=== PATIENT | male | born 1940 | race Caucasian/White ===

== ENCOUNTER 2017-08-06 15:15 | Inpatient (IN) | payer OTHER ==
[~2017-08-06] VITALS: Ht 177.8 cm; Wt 66.8 kg
[~2017-08-06 15:15] MED LIST: ASPIRIN EC81 M1 PO; BUFFERIN LOW DO81 MG PO; CALCIUM + D3 E1 EACH PO; CALCIUM + D3 PO; CALCIUM 600 +1 EA12 PO; CO Q-10100 MG PO; COQ-10100 MG PO; COQ10 PO; COUMADIN 5 MG TA5 MG PO; DITROPAN XL5 M1 PO; DOCUSATE SODIU100 MG PO; FISH OIL 1,0001 EACH PO; FISH OIL CONC1000 MG PO; FLOMAX(MONOGRA0.4 MG PO; FLOMAX0.4 M1 PO; LEVOTHYROXIN0.075 MG PO; LEVOTHYROXINE75 MCG PO; LOPRESSOR 25MG25 MG PO; METOPROLOL TART25 M1 PO; MULTIVITAMIN1 TA1 PO; MULTIVITAMINS1 EAC8 PO; NEXIUM40 M1 PO; OXYBUTYNIN CHLOR5 M2 PO; PERCOCET 325 MG1 TA2 PO; SIMVASTATIN20 MG PO; SYNTHROID100 MCG PO
[2017-08-06 16:08] LABS: ABSOLUTE BASOPHIL COUNT 0 /CUMM (0.0-0.2); ABSOLUTE EOSINOPHIL COUNT 0.3 /CUMM (0.0-0.7); ABSOLUTE LYMPH COUNT 1.4 /CUMM (1.2-3.4); ABSOLUTE MONOCYTE COUNT 0.5 /CUMM (0.10-0.60); BASOPHIL % 0.6 % (0.0-2.0); EOSINOPHIL % 4.8 % (0-5); GRANULOCYTE % 63.8 % (42.2-75.2); HEMATOCRIT 41.7 % (42-52); MEAN CORPUSCULAR HGB 32.6 PG (27.0-31.0); MEAN CORPUSCULAR VOLUME 95.9 FL (80.0-94.0); MEAN PLATELET VOLUME 7.9 FL (7.4-10.4); PLATELET COUNT 212 /CUMM (130-400); RBC DISTRIBUTION WIDTH 14.8 % (11.5-14.5); RED BLOOD CELL CT 4.35 /CUMM (4.70-6.10); WHITE BLOOD CELL COUNT 6.3 /CUMM (4.8-10.8)
--- NOTE | 2017-08-06 16:33 | ED CARDIAC/CP/PALPITATIONS ---
History of Present Illness General Chief Complaint: Chest Pain Stated Complaint: CHEST PAIN Source: patient Exam Limitations: no limitations Vital Signs & Intake/Output Vital Signs & Intake/Output Vital Signs Date Time Temp Pulse Resp B/P B/P Pulse O2 O2 Flow FiO2 Mean Ox Delivery Rate 08/06 2120 98.2 58 18 130/58 94 Room Air 08/06 2100 98.5 59 18 142/80 92 Room Air 08/06 1800 98.6 67 20 153/99 96 Room Air 08/06 1521 98.6 60 18 122/67 98 Room Air Allergies Coded Allergies: NO KNOWN ALLERGIES (06/22/15) Triage Note: 77 YO MALE TO TRIAGE C/O CHEST PAIN THAT RADAITES UP INTO L SIDE OF JAW STARTING AROUNS 45 MINTUES AGO WHILE SITTING DOWN READING. REPORTS HX OF NC. STATES HE TOOK 2 NITRO CARE MANAGEMENT ASSISTANT WITHOUT RELIEF. Triage Nurses Notes Reviewed? yes Onset: Abrupt Duration: hour(s): (1 PRIOR TO PRESENTATION ), better, gone now Timing: single episode today Quality/Severity: moderate Location: central (AND LEFT CHEST ) Radiation: jaw Activities at Onset: none, rest Prior Chest Pain/Card Workup: heart attack Nitro Today/Relief: 0.4 mg x 2, provided at home, no relief Aspirin Today: 81 mg x 1, provided at home Associated Symptoms: shortness of breath HPI: 77-year-old male past medical history hypertension, myocardial infarction, coronary artery disease, obesity, hypothyroidism presents for evaluation of an episode chest pain. Patient states proximally one hour prior to presentation he was sitting in a chair relaxing when he suddenly felt acute onset of chest pain in the left/center of his chest and his left jaw. This lasted for approximately 45 minutes before resolving completely. Associated with shortness of breath. No alleviating or aggravating factors. The pain is described as pressure. Patient states that he took 2 doses of nitroglycerin without any improvement in his symptoms. No sweats or chills no nausea vomiting no hemoptysis no lower extremity edema. She does have a remote history of NC 14 years ago. he sees a tile trimmer regulate. He states that he had a similar episode about one month ago without known etiology. Patient currently is completely asymptomatic and feels well. The pain resolved on its own. (Silver MILLER,Dudley) Reconcile Medications Aspirin (Aspirin*) 81 MG TAB.CHEW 1 TAB PO DAILY HEART HEALTH (Reported) Calcium Carbonate/Vitamin D3 (Calcium 500 + D Tablet) 500 MG-400 TABLET 1 TAB PO BID VITAMIN (Reported) Levothyroxine Sodium 100 MCG TABLET 1 TAB PO DAILY THYROID (Reported) Metoprolol Tartrate 25 MG TABLET 1 TAB PO BID HEART HEALTH (Reported) Simvastatin (Simvastatin*) 20 MG TABLET 1 TAB PO QPM HEART HEALTH (Reported) Solifenacin Succinate (Vesicare) 5 MG TABLET 1 TAB PO DAILY . (Reported) Tamsulosin HCl 0.4 MG CAP.ER.24H 1 CAP PO DAILY H (Reported) (Flaquito Charlton DO) Past History Travel History Traveled to [place] past 21 day No Medical History Any Pertinent Medical History? see below for history Neurological: NONE EENT: NONE Cardiovascular: hypertension, myocardial infarction, CHOLESTEROL Respiratory: NONE Gastrointestinal: NONE Hepatic: NONE Renal: NONE Musculoskeletal: osteoarthritis Psychiatric: NONE Endocrine: hypothyroidism, obesity Blood Disorders: NONE Cancer(s): NONE MARKETING ADMIN/Reproductive: NONE History of MRSA: No History of VRE: No History of CDIFF: No Pneumonia Vaccine: 08/16/13 Influenza Vaccine: 12/16/14 Surgical History Surgical History: HIP REPLACEMEMNT Psychosocial History Who do you live with Spouse Services at Home NONE What is your primary language Kazakh Tobacco Use: Quit >30 days ago Family History Family History, If Any: Relation not specified for: *No pertinent family history Hx Contributory? No (Dudley Perdomo) Review of Systems Review of Systems Constitutional: Reports: no symptoms. EENTM: Reports: no symptoms. Respiratory: Reports: see HPI, short of breath. Cardiovascular: Reports: see HPI, chest pain. GI: Reports: no symptoms. Genitourinary: Reports: no symptoms. Musculoskeletal: Reports: no symptoms. Skin: Reports: no symptoms. Neurological/Psychological: Reports: no symptoms. Hematologic/Endocrine: Reports: no symptoms. Immunologic/Allergic: Reports: no symptoms. All Other Systems: Reviewed and Negative (Dudley Perdomo) Physical Exam Physical Exam General Appearance: well developed/nourished, no apparent distress, alert, awake Head: atraumatic, normal appearance Eyes: Bilateral: normal appearance, PERRL, EOMI. Ears, Nose, Throat: normal pharynx, normal ENT inspection, hearing grossly normal Neck: normal inspection, supple, full range of motion Respiratory: normal breath sounds, chest non-tender, no respiratory distress, lungs clear Cardiovascular: regular rate/rhythm, normal peripheral pulses Peripheral Pulses: 2+ radial (R), 2+ radial (L) Gastrointestinal: normal bowel sounds, soft, non-tender, no organomegaly Back: normal inspection, normal range of motion, no vertebral tenderness Extremities: normal inspection, normal range of motion, no edema Neurologic/Psych: no motor/sensory deficits, awake, alert, oriented x 3, normal gait, normal mood/affect Skin: intact, normal color, warm/dry Lymphatic: no anterior cervical tari Core Measures ACS in differential dx? Yes CVA/TIA Diagnosis No Sepsis Present: No Sepsis Focused Exam Completed? No (Silver MILLER,Dudley) Progress Differential Diagnosis: AMI, aortic dissection, atrial fibrillation, CHF/pulm edema, costochondritis, intracranial hemorrhage, musculoskeletal pain, pancreatitis, pericarditis, pneumonia, pneumothorax, PSVT, pulmonary embolism, PUD/GERD, PVCs/PACs, respiratory failure, rib fracture, unstable angina, V-fib/V -Tach, WPW syndrome Plan of Care: Orders Procedure Date/time Status Heart Healthy Diet 08/07 B Active CBC WITHOUT DIFFERENTIAL 08/07 0600 Active BASIC ELECTROLYTES PLUS BUN&CR 08/07 0600 Active TROPONIN LEVEL 08/07 0100 Active EKG 08/07 0100 Active Weight 08/06 2146 Active Teach/Educate 08/06 2146 Active Pain Treatment and Response 08/06 2146 Active Nutritional Intake, Monitor 08/06 2146 Active Isolation 08/06 2146 Active Patient Care Conference 08/06 2146 Active Activity/Ambulation 08/06 2146 Active Pathway - chart 08/06 2046 Active House Staff 08/06 2046 Active Intake & Output 08/06 2016 Active Patient Data 08/06 2013 Active TROPONIN LEVEL 08/06 1900 Complete EKG 08/06 1900 Active Admit to inpatient 08/06 1843 Active Vital Signs 08/06 1843 Active Code Status 08/06 1843 Active Add-on Test (ER Only) 08/06 1622 Active D-DIMER 08/06 1559 Complete TROPONIN LEVEL 08/06 1537 Complete COMPREHENSIVE METABOLIC PANEL 08/06 1537 Complete CBC WITHOUT DIFFERENTIAL 08/06 1537 Complete EKG 08/06 1516 Active VTE Mechanical Prophylaxis 08/06 UNK Active Current Medications Sig/Juan Start time Last Medication Dose Stop Time Status Admin Ramelteon 8 MG AT BEDTIME 08/07 2100 AC 08/06 (Rozerem) 234 Aspirin 81 MG DAILY 08/07 09 AC (Aspirin) Calcium 600 MG BID 08/07 899 AC (Calcium Carbonate 600 MG Tab) Cholecalciferol 1,000 IU DAILY 08/07 09 AC (Vitamin D) Enoxaparin Sodium 40 MG DAILY 08/07 09 AC (Lovenox) Levothyroxine Sodium 0.1 MG DAILY AC 08/07 07 AC (Synthroid) Atorvastatin Calcium 10 MG 1700 08/06 2314 AC 08/06 (Lipitor) 2348 Metoprolol Tartrate 25 MG BID 08/06 2314 AC 08/06 (Lopressor) 234 Tamsulosin HCl 0.4 MG QPM 08/06 2314 AC 08/06 (Flomax) 2348 Oxybutynin Chloride 5 MG BID 08/06 230 AC 08/06 (Ditropan) 2350 Laboratory Tests 08/06/17 1901: Troponin I < 0.01 08/06/17 1559: Anion Gap 11, Estimated GFR > 60, BUN/Creatinine Ratio 20.0, Glucose 101 H, Calcium 9.3, Total Bilirubin 0.6, AST 36, ALT 52, Alkaline Phosphatase 59, Troponin I < 0.01, Total Protein 7.0, Albumin 4.3, Globulin 2.7, Albumin/ Globulin Ratio 1.6, D-Dimer High Sensitivty < 200, CBC w Diff NO MAN DIFF REQ, RBC 4.35 L, MCV 95.9 H, MCH 32.6 H, MCHC 34.0, RDW 14.8 H, MPV 7.9, Gran % 63.8, Lymphocytes % 22.8, Monocytes % 8.0, Eosinophils % 4.8, Basophils % 0.6, Absolute Granulocytes 4.0, Absolute Lymphocytes 1.4, Absolute Monocytes 0.5, Absolute Eosinophils 0.3, Absolute Basophils 0 Seen and evaluated. He is here with Pepcid chest pain that occurred about an hour before presentation. Currently he is asymptomatic. He took nitroglycerin without any improvement in his pain. Initial EKG and troponin are negative and unchanged. D-dimer is negative. Chest x-ray and repeat EKGs troponins ordered. Spoke with Dr. West patient's on-call tile trimmer. He recommends admission to rule out acute coronary syndrome as patient had a similar episode about a month and a half agO. Patient will be admitted to the hospital for serial EKGs serial labs telemetry cardiology consult echocardiogram nuclear stress test possible cardiac catheterization. Case discussed with Dr. Charlton. he agrees. Repeat EKG and troponin is still pending at time of admission. Dr. Charlton admitted the patient. Diagnostic Imaging: Viewed by Me: Radiology Read. Discussed w/RAD: Radiology Read. Radiology Impression: PATIENT: NILE KNOWLES PRESENT AGE: 77 PATIENT ACCOUNT NO: [id number] : 40 LOCATION: [facility] ORDERING PHYSICIAN: Dudley MILLER SERVICE DATE: 08/06/17 EXAM TYPE: RAD - XRY- CHEST XRAY, TWO VIEWS EXAMINATION: CHEST 2 VIEWS CLINICAL INFORMATION: Chest pain. Shortness of breath. COMPARISON: 04/23/2017. TECHNIQUE: PA and lateral views of the chest were obtained. FINDINGS: The cardiac silhouette is stable. The mediastinal and hilar contours are unremarkable. There are neither pleural effusions nor pneumothoraces. There are no consolidations. The lungs are mildly hyperinflated. The osseous structures are otherwise unremarkable. IMPRESSION: No evidence for acute disease. DICTATED BY: Adalid Douglas MD DATE/TIME DICTATED:1749 [employer] DRIVER:CHRISTINA DATE/TIME TRANSCRIBED:08/06/171749 CONFIDENTIAL, DO NOT COPY WITHOUT APPROPRIATE AUTHORIZATION. <Electronically signed in Other Vendor System> SIGNED BY: Adalid Douglas MD 08/06/17 180 Initial ED EKG: sinus rhythm, inferior infarct age indeterminate Prior EKG: unchanged (Dudley Perdomo) Departure Departure Disposition: STILL A PATIENT Condition: Stable Clinical Impression Primary Impression: Chest pain Qualifiers: Chest pain type: unspecified Qualified Code: R07.9 - Chest pain, unspecified Referrals: Macho Brandon DO (PCP/Family) Departure Forms: Customer Survey General Discharge Information Admission Note Spoke With: Tommy Noriega MD Documentation of Exam: Documentation of any treatments & extenuating circumstances including Concerns Regarding Discharge (functional status, medication knowledge or non-compliance, living conditions, etc.) that warrant an admission rather than observation: [ Cardiology consult, serial labs, serum EKGs, echocardiogram, Nuclear Stress test, telemetry] (Dudley Perdomo) PA/BRICKLAYER APPRENTICE Co-Sign Statement Statement: ED Attending supervision documentation- [x] I saw and evaluated the patient. I have also reviewed all the pertinent lab results and diagnostic results. I agree with the findings and the plan of care as documented in the PA's/BRICKLAYER APPRENTICE's documentation. [] I have reviewed the ED Record and agree with the PA's/BRICKLAYER APPRENTICE's documentation. [] Additions or exceptions (if any) to the PAs/BRICKLAYER APPRENTICE's note and plan are summarized below: [] I saw and personally examined the patient and I agree with the PA. Denied any complaints on my exam, (Zoltan SHAH,Flaquito Murry) Critical Care Note Critical Care Note Critical Care Time: non-applicable (Dudley Perdomo)
--- NOTE | 2017-08-06 18:02 | RADIOLOGY REPORT ---
EXAMINATION: CHEST 2 VIEWS CLINICAL INFORMATION: Chest pain. Shortness of breath. COMPARISON: 04/23/2017. TECHNIQUE: PA and lateral views of the chest were obtained. FINDINGS: The cardiac silhouette is stable. The mediastinal and hilar contours are unremarkable. There are neither pleural effusions nor pneumothoraces. There are no consolidations. The lungs are mildly hyperinflated. The osseous structures are otherwise unremarkable. IMPRESSION: No evidence for acute disease.
[2017-08-06] MEDS ORDERED: LEVOTHYROXINE100 MC1 PO (20:11)
[2017-08-06] MEDS ORDERED: SIMVASTATIN20 M2 PO (20:12)
[2017-08-06] MEDS ORDERED: TAMSULOSIN HCL0.4 M1 PO (20:12)
[2017-08-06] MEDS ORDERED: VESICARE5 M1 PO (20:13)
[2017-08-06] MEDS ORDERED: METOPROLOL TART25 M1 PO (20:13)
[2017-08-06] MEDS ORDERED: ASPIRIN81 M4 PO (20:14)
[2017-08-06] MEDS ORDERED: CALCIUM 500 +1 EAC5 PO (20:15)
--- NOTE | 2017-08-06 20:33 | History & Physical ---
Chele CAMPOS,Dudley 08/06/172032: General Information and HPI History of Present Illness: Mr. Barrera is a 77-year-old male with past medical history of hypertension, coronary artery disease status post SD 13 years [address] followed by Dr. Jurado, obesity, and hypothyroidism who presents with chest pain. Patient notes that he started having chest pain around 3 PM today described as a sharp pain in his chest that radiated to his jaw. He has had pain like this previously. He took nitroglycerin 2 with no effect. Because the patient was constant associated with lightheadedness, he decided to come in for further evaluation. He describes no alleviating or exacerbating factors. He does have chronic shortness of breath with exertion. He also notes that his daughter recently from metastatic cancer. He denies any abdominal pain, fever, chills or other issues. He is a former smoker denies recreational drug use or alcohol use. Allergies/Medications Allergies: Coded Allergies: NO KNOWN ALLERGIES (06/22/15) Home Med list Aspirin (Aspirin*) 81 MG TAB.CHEW 1 TAB PO DAILY HEART HEALTH (Reported) Calcium Carbonate/Vitamin D3 (Calcium 500 + D Tablet) 500 MG-400 TABLET 1 TAB PO BID VITAMIN (Reported) Levothyroxine Sodium 100 MCG TABLET 1 TAB PO DAILY THYROID (Reported) Metoprolol Tartrate 25 MG TABLET 1 TAB PO BID HEART HEALTH (Reported) Simvastatin (Simvastatin*) 20 MG TABLET 1 TAB PO QPM HEART HEALTH (Reported) Solifenacin Succinate (Vesicare) 5 MG TABLET 1 TAB PO DAILY . 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 spouse Services at Home: NONE Functional Ability ADLs Independent: dressing, eating, toileting, bathing. Ambulation: independent IADLs Independent: shopping, housework, finances, food prep, telephone, transportation , medication admin. Review of Systems Review of Systems Constitutional: Reports: no symptoms. EENTM: Reports: no symptoms. Cardiovascular: Reports: see HPI. Respiratory: Reports: no symptoms. GI: Reports: no symptoms. Genitourinary: Reports: no symptoms. Musculoskeletal: Reports: no symptoms. Skin: Reports: no symptoms. Neurological/Psychological: Reports: no symptoms. Hematologic/Endocrine: Reports: no symptoms. Immunologic/Allergic: Reports: no symptoms. All Other Systems: Reviewed and Negative Exam & Diagnostic Data Last 24 Hrs of Vital Signs/I&O Vital Signs Date Time Temp Pulse Resp B/P B/P Pulse O2 O2 Flow FiO2 Mean Ox Delivery Rate 08/06 2121 98.2 58 18 130/58 94 Room Air 08/06 1800 98.6 67 20 153/99 96 Room Air 08/06 1521 98.6 60 18 122/67 98 Room Air Intake & Output 08/06 1600 08/06 0800 08/06 0000 Intake Total Output Total Balance Patient 108.862 kg Weight Weight Reported by Patient Measurement Method Physical Exam General Appearance Alert, Oriented X3, Cooperative, No Acute Distress Cardiovascular Regular Rate, Normal S1, Normal S2 Lungs Clear to Auscultation Abdomen Normal Bowel Sounds, Soft, No Tenderness Extremities No Edema, Normal Pulses, No Tenderness/Swelling Last 24 Hrs of Labs/Epifanio: Laboratory Tests 08/06/17 1901: Troponin I < 0.01 08/06/17 1559: Anion Gap 11, Estimated GFR > 60, BUN/Creatinine Ratio 20.0, Glucose 101 H, Calcium 9.3, Total Bilirubin 0.6, AST 36, ALT 52, Alkaline Phosphatase 59, Troponin I < 0.01, Total Protein 7.0, Albumin 4.3, Globulin 2.7, Albumin/ Globulin Ratio 1.6, D-Dimer High Sensitivty < 200, CBC w Diff NO MAN DIFF REQ, RBC 4.35 L, MCV 95.9 H, MCH 32.6 H, MCHC 34.0, RDW 14.8 H, MPV 7.9, Gran % 63.8, Lymphocytes % 22.8, Monocytes % 8.0, Eosinophils % 4.8, Basophils % 0.6, Absolute Granulocytes 4.0, Absolute Lymphocytes 1.4, Absolute Monocytes 0.5, Absolute Eosinophils 0.3, Absolute Basophils 0 Assessment/Plan Assessment: Mr. Barrera is a 77-year-old male with past medical history of hypertension, coronary artery disease status post SD 13 years [address] followed by Dr. Jurado, obesity, and hypothyroidism who presents with chest pain. On presentation, vital signs were T 98.6, HR 60, RR 18, BP 122/67, saturating 90 % on room air. Laboratories were significant for hematocrit 41.7, MCV 95.9, BUN 22, glucose 101, calcium 9.3, d-dimer negative, troponin less than 0.01. Chest x-ray showed no acute process. He will be admitted to telemetry and treated for the following problems: 1. Chest pain syndrome #Chest pain syndrome: Patient presents with chest pain concerning for myocardial infarction with history of myocardial infarction. Troponin has been negative 2. His chest pain has since resolved. -Troponin/EKG 3 -laboratory monitor -Cardiology consult #Chronic medical problems: Continue other home medications DVT prophylaxis with enoxaparin Heart healthy diet DNR/DNI As Ranked By This Provider Problem List: 1. Chest pain Qualifiers Chest pain type: unspecified Qualified Code: R07.9 - Chest pain, unspecified Core Measures/Misc (12/02) Acute Coronary Syndrome ACS Diagnosis: No Congestive Heart Failure Congestive Heart Failure Diagnosis No Cerebrovascular Accident CVA/TIA Diagnosis: No VTE (View Protocol) VTE Risk Factors Age>40 No Mechanical VTE Prophylaxis d/t N/A MechProphylax Ordered No VTE Pharm Prophylaxis d/t NA PharmProphylax ordered Sepsis (View protocol) Sepsis Present: No If YES complete Sepsis Event Note If YES complete Sepsis Event Note Yoshi Davila MD 08/06/172039: Core Measures/Misc (12/02) Sepsis (View protocol) If YES complete Sepsis Event Note If YES complete Sepsis Event Note Resident Review Statement Resident Statement: examined this patient, discussed with leadership intern, agreed with leadership intern, reviewed EMR data (avail), discussed with nursing, reviewed images, amended to note Other Findings: 77-year-old male with past medical history of hypertension, CAD s/p catheterization but no stenting or CABG, SD 13 years ago, hypothyroidism, was referred to the emergency department by his sole conforming machine operator after complaining of central chest pain radiating to his jaw. The pain started as mentioned above around 3 PM earlier today at rest, 7/10, constant, was not relieved by nitroglycerin, nothing made it worse or better, but the pain went away on reaching the ED. This was associated with slight dizziness, but he did not fall or had gait imbalance. He denies any shortness of breath more than usual, although he has chronic mild shortness of breath. He denies any recent flulike illness, pain on deep inspiration, leg swelling, recent travel history, sick contacts, fever/chills, abdominal pain, cough. Of note, patient had similar pains about 2 months ago, which was not pursued with investigations. Vitals, physical examination, lab works, as noted above. EKG showed sinus rhythm, and old ST-T changes. Given his extensive cardiac history with risk of ischemic event, patient was admitted to the telemetry floor for the management of following issues: #Chest pain, to rule out ACS Patient has extensive cardiac history, but seems to be describing atypical chest pain, his troponin initially is negative, and EKG does not show any acute ischemic changes either. However ACS needs to be ruled out. * Will admit the patient in telemetry * Regular vitals, rate/rhythm monitoring * Trend troponin and EKG to rule out ACS * Cardiology consultation placed * Check with cardiology if patient had recent imaging, else would go for echocardiogram, and/or stress test * The patient did not follow-up with his sole conforming machine operator after his last chest pain, loss he probably would benefit from getting a stress test in-house. #Will continue rest of his home medications. #Housekeeping: Diet heart healthy diet DVT prophylaxis: SQ Lovenox CODE STATUS: DNR/DNI. Tommy Noriega 08/07/17 0040: Core Measures/Misc (12/02) Sepsis (View protocol) If YES complete Sepsis Event Note If YES complete Sepsis Event Note Attending MD Review Statement Attending Statement Attending MD Statement: examined this patient, discuss w/resident/PA/IT BUSINESS SYSTEMS ANALYST, agreed w/resident/PA/IT BUSINESS SYSTEMS ANALYST, reviewed EMR data (avail), reviewed images, amended to note Attending Assessment/Plan: CC: Chest pain PMH: CAD s/p SD, hypothyroidism, BPH, HLD, HTN, bilateral hip replacement Patient came to ER for substernal and left-sided chest pain radiating to jaw started at 3 PM, at rest, sharp severe constant, associated with lightheadedness. He took 2 tablets of nitroglycerin without relief, pain was persistent so he came to ER. He denied any palpitation, chest tightness, cough, expectoration, fever. Patient states that he had similar episode in the month of April and was seen in ER. He could not follow up with sole conforming machine operator after. He saw a sole conforming machine operator in month of March, previous stress test was approximately one and half year back which was unremarkable. He states that they found a block in his arteries in past but it was not possible to put a stent because of difficulty. He walks half mile a day in 25-30 minutes without symptoms of chest tightness or chest pain. He gets mild shortness of breath and hip pain which makes him stop. His daughter recently because of cancer and he has been dealing with stress. Vitals: Temperature 98.6, pulse 60, RR 18, blood pressure 122/67, saturating 98% on room air. On exam: A O 3, cooperative, no acute distress, neck supple, JVD normal, no lymphadenopathy, mucosa moist, no focal neurological deficit, no dependent edema , no obvious skin rashes or inflammation CVS: S1-S2, RRR. RS: Clear to auscultate bilaterally. Abdomen: Soft, NT, ND, bowel sounds present. CXR: No evidence for acute disease. Assessment and plan 77-year-old male with above-mentioned past medical history presented in ER for left-sided chest pain radiating to jaw , started at rest. Pain lasted approximately an hour even after taking 2 tablets of nitroglycerin and eventually improved. He had associated dizziness and denies any palpitations. Given his history of coronary artery disease and should be further evaluated. As the pain happened at rest, more likely unstable angina. He had similar episode in month of April and was seen in ER but could not follow-up with sole conforming machine operator after his ER visit. Currently no ECG changes, troponin negative and pain resolved so we will not start any heparin. We'll continue aspirin, statin. KATHERINE 3 ; case discussed with sole conforming machine operator; who suggested inpatient Stress test. + Chest Pain r/o ACS + Hx CAD s/p SD, hypothyroidism, BPH, HLD, HTN, bilateral hip replacement - Admit to telemetry - Continuous telemetry monitoring - Serial troponin and EKGs - 2-D echo in a.m. if significant increase in troponin - Cardiology consult in a.m. - Continue aspirin, statin, beta cyrus - DVT prophylaxis - When necessary nitroglycerin for pain - Continue all his home medications
[2017-08-06 21:00] VITALS: BP 142/80
--- NOTE | 2017-08-07 00:41 | Admission Certification ---
Admission Certification Certification Statement - As attending physician, I certify that at the time of - admission, based on clinical presentation, severity of - symptoms, need for further diagnostic testing and - therapeutic interventions, and risk of adverse outcomes - without in-hospital treatment, in my clinical assessment, - this patient requires an acute hospital stay for a minimum - of two nights or longer. I have also considered psychsocial - factors such as support system, advanced age, financial - issues, cognitive issues, and failed out-patient treatments, - past re-admission history, safety of patient, and lack of - compliance as applicable. Specific rationale supporting this admission is: Chest pain rule out ACS
[2017-08-07 06:47] VITALS: BP 106/58
--- NOTE | 2017-08-07 07:27 | PN- Housestaff ---
Tish CAMPOS,[facility] 08/07/17 0726: Subjective Follow-up For: Chest pain Tele-Events Since Last Visit: SB, 47-60s, no other events. Subjective: Afebrile, hemodynamically stable, saturating well on room air. The patient is sitting in chair looks relaxed and comfortable. He denies chest pain, shortness breath, or palpitations since admission. He was found to be bradycardic down to 40s on picture engraver. The patient hoped that he can be discharged and do the stress test as an outpatient. Review of Systems Constitutional: Reports: no symptoms, see HPI. Objective Last 24 Hrs of Vital Signs/I&O Vital Signs Date Time Temp Pulse Resp B/P B/P Pulse O2 O2 Flow FiO2 Mean Ox Delivery Rate 08/07 0647 98.2 55 18 106/58 94 Room Air 08/06 2121 98.2 58 18 130/58 94 Room Air 08/06 2100 98.5 59 18 142/80 92 Room Air 08/06 1800 98.6 67 20 153/99 96 Room Air 08/06 1521 98.6 60 18 122/67 98 Room Air Intake & Output 08/07 1600 08/07 0800 08/07 0000 Intake Total 200 100 Output Total Balance 200 100 Intake, Oral 200 100 Patient 66.848 kg Weight Weight Bed scale Measurement Method Physical Exam General Appearance: Alert, Oriented X3, Cooperative, No Acute Distress Skin: No Rashes HEENT: Atraumatic, PERRLA, EOMI, Mucous Membr. moist/pink Neck: No JVD Cardiovascular: Regular Rate, Normal S1, Normal S2, No Murmurs Lungs: Clear to Auscultation, Normal Air Movement Abdomen: Soft, No Tenderness Neurological: Normal Speech Extremities: No Clubbing, No Cyanosis, No Edema Current Medications: Current Medications Sig/Juan Start time Last Medication Dose Route Stop Time Status Admin Aspirin 81 MG DAILY 08/07 899 AC 08/07 PO 0840 Atorvastatin Calcium 10 MG 1700 08/06 2315 AC 08/06 PO 2349 Calcium 600 MG BID 08/07 899 AC 08/07 PO 0840 Cholecalciferol 1,000 IU DAILY 08/07 899 AC 08/07 PO 0840 Enoxaparin Sodium 40 MG DAILY 08/07 899 AC 08/07 SC 0841 Levothyroxine Sodium 0.1 MG DAILY AC 08/07 0700 08/07 PO 0634 Metoprolol Tartrate 25 MG BID 08/06 2315 08/06 PO 2349 Nitroglycerin 0.5 GM Q6 PRN 08/07 0245 TOP Oxybutynin Chloride 5 MG BID 08/06 2301 08/07 PO 0840 Ramelteon 8 MG AT BEDTIME 08/07 2100 08/06 PO 2349 Ramelteon 8 MG .STK-MED ONE 08/06 2345 DC PO 08/06 2346 Tamsulosin HCl 0.4 MG QPM 08/06 2314 08/06 PO 234 Last 24 Hrs of Lab/Epifanio Results Last 24 Hrs of Labs/Mics: Laboratory Tests 08/07/17 0610: Anion Gap 11, Estimated GFR > 60, BUN/Creatinine Ratio 24.4, CBC w Diff NO MAN DIFF REQ, RBC 4.18 L, MCV 95.8 H, MCH 32.5 H, MCHC 33.9, RDW 14.9 H, MPV 8.5 , Gran % 59.4, Lymphocytes % 24.1, Monocytes % 10.5 H, Eosinophils % 5.3 H, Basophils % 0.7, Absolute Granulocytes 3.0, Absolute Lymphocytes 1.2, Absolute Monocytes 0.5, Absolute Eosinophils 0.3, Absolute Basophils 0 08/07/17 0110: Troponin I 0.03 08/06/17 1901: Troponin I < 0.01 08/06/17 1559: Anion Gap 11, Estimated GFR > 60, BUN/Creatinine Ratio 20.0, Glucose 101 H, Calcium 9.3, Total Bilirubin 0.6, AST 36, ALT 52, Alkaline Phosphatase 59, Troponin I < 0.01, Total Protein 7.0, Albumin 4.3, Globulin 2.7, Albumin/ Globulin Ratio 1.6, D-Dimer High Sensitivty < 200, CBC w Diff NO MAN DIFF REQ, RBC 4.35 L, MCV 95.9 H, MCH 32.6 H, MCHC 34.0, RDW 14.8 H, MPV 7.9, Gran % 63.8, Lymphocytes % 22.8, Monocytes % 8.0, Eosinophils % 4.8, Basophils % 0.6, Absolute Granulocytes 4.0, Absolute Lymphocytes 1.4, Absolute Monocytes 0.5, Absolute Eosinophils 0.3, Absolute Basophils 0 Assessment/Plan Assessment: This is 77-year-old male with past medical history of + Chest Pain r/o ACS CAD s/p SD, hypothyroidism, BPH, HLD, HTN, bilateral hip replacement, who presented for evaluation of chest pain. He was reviewing documents related to his daughter who recently secondary to cancer. Given his past medical history he will need stress test to be done. The stress test can be done as an outpatient, because he is currently stable and symptom-free and also ACS was ruled out with serial troponin and EKG. #Chest pain * Patient is stable for discharge * We will continue all home medications includ ASA, BB and statin * The patient will be instructed to follow with the manager route with a 1 week * He will be scheduled for stress test to be done as an outpatient * He was instructed to call 911 and come back if any chest pain is to start. * Heart health diet * FC Problem List: 1. Chest pain Pain Ratin Pain Location: chest Pain Goal: Remain pain free Pain Plan: See A&P Tomorrow's Labs & Rationales: non Sue Howard 08/07/17 1326: Attending MD Review Statement Attending Statement Attending MD Statement: examined this patient, discuss w/resident/PA/ICT QUALITY ASSURANCE ENGINEER, agreed w/resident/PA/ICT QUALITY ASSURANCE ENGINEER, discussed with family, reviewed EMR data (avail), discussed with nursing, discussed with case mgmt, reviewed images, amended to note Attending Assessment/Plan: Patient here with atypical chest pain. Histroy of CAD in past. Patient would benefit from further work up of ischemia. He prefers outpatient stress test for now. Cardiology consulted and in agreement. Metoprolol discontinued 2/2 bradycardia. follow up with PCP and cardiology outpatient in 1-2 weeks of discharge.
[2017-08-07 08:21] LABS: ABSOLUTE BASOPHIL COUNT 0 /CUMM (0.0-0.2); ABSOLUTE EOSINOPHIL COUNT 0.3 /CUMM (0.0-0.7); ABSOLUTE LYMPH COUNT 1.2 /CUMM (1.2-3.4); ABSOLUTE MONOCYTE COUNT 0.5 /CUMM (0.10-0.60); BASOPHIL % 0.7 % (0.0-2.0); EOSINOPHIL % 5.3 % (0-5); GRANULOCYTE % 59.4 % (42.2-75.2); MEAN CORPUSCULAR HGB 32.5 PG (27.0-31.0); MEAN CORPUSCULAR HGB CONC 33.9 G/DL (33.0-37.0); MEAN CORPUSCULAR VOLUME 95.8 FL (80.0-94.0); MEAN PLATELET VOLUME 8.5 FL (7.4-10.4); PLATELET COUNT 187 /CUMM (130-400); RBC DISTRIBUTION WIDTH 14.9 % (11.5-14.5); RED BLOOD CELL CT 4.18 /CUMM (4.70-6.10)
--- NOTE | 2017-08-07 12:09 | Cons- Cardiology ---
General Information and HPI Consulting Request Date of Consult: 08/07/17 Requested By: Tommy Noriega MD Reason for Consult: Chest pain Source of Information: patient, old records History of Present Illness: This is a pleasant 77-year-old male with a past medical history of known coronary artery disease with MN in 2002 with known total RCA occlusion, hypertension, hyperlipidemia, and hypothyroidism who presents to [facility] with a chief complaint of chest discomfort at rest described as sharp in nature with some radiation to the jaw; grossly unchanged by nitroglycerin. Denied significant shortness of breath or palpitations. Did have some mild lightheadedness. Does report being under increased emotional stress recently. Prior to the episode he reports good exertional tolerance with no change in exertional ability and no increasing exertional symptoms. A stress test in November showed area of infarct without obvious ischemia. He denies slurring of speech, syncope, orthopnea, or paroxysmal nocturnal dyspnea. Allergies/Medications Allergies: Coded Allergies: NO KNOWN ALLERGIES (06/22/15) Home Med List: Aspirin (Aspirin*) 81 MG TAB.CHEW 1 TAB PO DAILY HEART HEALTH (Reported) Calcium Carbonate/Vitamin D3 (Calcium 500 + D Tablet) 500 MG-400 TABLET 1 TAB PO BID VITAMIN (Reported) Levothyroxine Sodium 100 MCG TABLET 1 TAB PO DAILY THYROID (Reported) Metoprolol Tartrate 25 MG TABLET 1 TAB PO BID HEART HEALTH (Reported) Simvastatin (Simvastatin*) 20 MG TABLET 1 TAB PO QPM HEART HEALTH (Reported) Solifenacin Succinate (Vesicare) 5 MG TABLET 1 TAB PO DAILY . (Reported) Tamsulosin HCl 0.4 MG CAP.ER.24H 1 CAP PO DAILY H (Reported) Current Medications: Current Medications Sig/Juan Start time Last Medication Dose Route Stop Time Status Admin Aspirin 81 MG DAILY 08/07 899 AC 08/07 PO 0840 Atorvastatin Calcium 10 MG 1700 08/06 2315 AC 08/06 PO 2349 Calcium 600 MG BID 08/07 899 AC 08/07 PO 0840 Cholecalciferol 1,000 IU DAILY 08/07 899 AC 08/07 PO 0840 Enoxaparin Sodium 40 MG DAILY 08/07 899 AC 08/07 SC 0841 Levothyroxine Sodium 0.1 MG DAILY AC 08/07 0700 AC 08/07 PO 0634 Metoprolol Tartrate 25 MG BID 08/06 2314 AC 08/06 PO 2349 Nitroglycerin 0.5 GM Q6 PRN 08/07 0245 TOP Oxybutynin Chloride 5 MG BID 08/06 2301 AC 08/07 PO 0840 Ramelteon 8 MG AT BEDTIME 08/07 2100 AC 08/06 PO 2349 Ramelteon 8 MG .STK-MED ONE 08/06 2346 DC PO 08/06 2347 Tamsulosin HCl 0.4 MG QPM 08/06 231 AC 08/06 PO 234 Review of Systems Review of Systems: Review of systems as per HPI. The remainder of a 10 point review of systems was reviewed and was otherwise negative. Past History Travel History Traveled to [place] past 21 day No Medical History Blood Transfusion Hx: No Neurological: NONE EENT: NONE Cardiovascular: hypertension, hyperlipidemia, myocardial infarction Respiratory: NONE Gastrointestinal: NONE Hepatic: NONE Renal: NONE Musculoskeletal: osteoarthritis Psychiatric: NONE Endocrine: hypothyroidism, obesity Blood Disorders: NONE Cancer(s): NONE REQUISITION APPROVER/Reproductive: NONE Surgical History Surgical History: HIP REPLACEMENT x 2 Family History Relations & Conditions If Any: Relation not specified for: *No pertinent family history Psychosocial History Who Do You Live With? spouse Services at Home: NONE Smoking Status: Former Smoker Functional Ability ADLs Independent: dressing, eating, toileting, bathing. Ambulation: independent IADLs Independent: shopping, housework, finances, food prep, telephone, transportation , medication admin. Exam & Diagnostic Data Vital Signs and I&O Vital Signs Date Time Temp Pulse Resp B/P B/P Pulse O2 O2 Flow FiO2 Mean Ox Delivery Rate 08/07 0647 98.2 55 18 106/58 94 Room Air 08/06 212 98.2 58 18 130/58 94 Room Air 08/06 2100 98.5 59 18 142/80 92 Room Air 08/06 1800 98.6 67 20 153/99 96 Room Air 08/06 1521 98.6 60 18 122/67 98 Room Air Intake & Output 08/07 1600 08/07 0800 08/07 0000 08/06 1600 08/06 0808/06 0000 Intake Total 200 100 Output Total Balance 200 100 Intake, Oral 200 100 Patient 147 lb 240 lb Weight Weight Bed scale Reported by Patient Measurement Method Physical Exam: General: no apparent distress. Alert. Eyes: No obvious scleral icterus. HEENT: No jugular venous distention or abnormal jugular venous pulsations. Cardiovascular: Normal intensity S1/S2. PMI not grossly displaced. Respiratory: Lungs clear to auscultation bilaterally. Abdomen: Soft, nontender with no guarding or rebound tenderness. Musculoskeletal: No clubbing or cyanosis noted Skin: warm Neurologic: No gross focal deficits noted. Lymph: No gross lymphadenopathy. Labs/Epifanio Results: Laboratory Tests 08/07 08/07 08/06 0610 0110 1901 Chemistry Sodium (137 - 145 mmol/L) 141 Potassium (3.5 - 5.1 mmol/L) 5.1 Chloride (98 - 107 mmol/L) 104 Carbon Dioxide (22 - 30 mmol/L) 27 Anion Gap (5 - 16) 11 BUN (9 - 20 mg/dL) 22 H Creatinine (0.7 - 1.2 mg/dL) 0.9 Estimated GFR (>60 ml/min) > 60 BUN/Creatinine Ratio (7 - 25 %) 24.4 Troponin I (<0.11 ng/ml) 0.03 < 0.01 Hematology CBC w Diff NO MAN DIFF REQ WBC (4.8 - 10.8 /CUMM) 5.0 RBC (4.70 - 6.10 /CUMM) 4.18 L Hgb (14.0 - 18.0 G/DL) 13.6 L Hct (42 - 52 %) 40.0 L MCV (80.0 - 94.0 FL) 95.8 H MCH (27.0 - 31.0 PG) 32.5 H MCHC (33.0 - 37.0 G/DL) 33.9 RDW (11.5 - 14.5 %) 14.9 H Plt Count (130 - 400 /CUMM) 187 MPV (7.4 - 10.4 FL) 8.5 Gran % (42.2 - 75.2 %) 59.4 Lymphocytes % (20.5 - 51.1 %) 24.1 Monocytes % (1.7 - 9.3 %) 10.5 H Eosinophils % (0 - 5 %) 5.3 H Basophils % (0.0 - 2.0 %) 0.7 Absolute Granulocytes (1.4 - 6.5 /CUMM) 3.0 Absolute Lymphocytes (1.2 - 3.4 /CUMM) 1.2 Absolute Monocytes (0.10 - 0.60 /CUMM) 0.5 Absolute Eosinophils (0.0 - 0.7 /CUMM) 0.3 Absolute Basophils (0.0 - 0.2 /CUMM) 0 08/06 1559 Chemistry Sodium (137 - 145 mmol/L) 142 Potassium (3.5 - 5.1 mmol/L) 4.7 Chloride (98 - 107 mmol/L) 102 Carbon Dioxide (22 - 30 mmol/L) 30 Anion Gap (5 - 16) 11 BUN (9 - 20 mg/dL) 22 H Creatinine (0.7 - 1.2 mg/dL) 1.1 Estimated GFR (>60 ml/min) > 60 BUN/Creatinine Ratio (7 - 25 %) 20.0 Glucose (65 - 99 mg/dL) 101 H Calcium (8.4 - 10.2 mg/dL) 9.3 Total Bilirubin (0.2 - 1.3 mg/dL) 0.6 AST (17 - 59 U/L) 36 ALT (21 - 72 U/L) 52 Alkaline Phosphatase (< 127 U/L) 59 Troponin I (<0.11 ng/ml) < 0.01 Total Protein (6.3 - 8.2 g/dL) 7.0 Albumin (3.5 - 5.0 g/dL) 4.3 Globulin (1.9 - 4.2 gm/dL) 2.7 Albumin/Globulin Ratio (1.1 - 2.2 %) 1.6 Coagulation D-Dimer High Sensitivty (0 - 243 ng/ml) < 200 Hematology CBC w Diff NO MAN DIFF REQ WBC (4.8 - 10.8 /CUMM) 6.3 RBC (4.70 - 6.10 /CUMM) 4.35 L Hgb (14.0 - 18.0 G/DL) 14.2 Hct (42 - 52 %) 41.7 L MCV (80.0 - 94.0 FL) 95.9 H MCH (27.0 - 31.0 PG) 32.6 H MCHC (33.0 - 37.0 G/DL) 34.0 RDW (11.5 - 14.5 %) 14.8 H Plt Count (130 - 400 /CUMM) 212 MPV (7.4 - 10.4 FL) 7.9 Gran % (42.2 - 75.2 %) 63.8 Lymphocytes % (20.5 - 51.1 %) 22.8 Monocytes % (1.7 - 9.3 %) 8.0 Eosinophils % (0 - 5 %) 4.8 Basophils % (0.0 - 2.0 %) 0.6 Absolute Granulocytes (1.4 - 6.5 /CUMM) 4.0 Absolute Lymphocytes (1.2 - 3.4 /CUMM) 1.4 Absolute Monocytes (0.10 - 0.60 /CUMM) 0.5 Absolute Eosinophils (0.0 - 0.7 /CUMM) 0.3 Absolute Basophils (0.0 - 0.2 /CUMM) 0 Diagnostic Data EKG Results Tracing was personally reviewed and shows a sinus rhythm at 61 bpm with possible old inferior wall myocardial infarct CXR Results No CHF Other Results Telemetry tracings were personally reviewed and shows sinus rhythm and sinus bradycardia Assessment/Plan Assessment/Plan 1. Chest discomfort, atypical, now resolved 2. History of coronary artery disease with myocardial infarction in 2002 with known total RCA occlusion and nuclear stress test November 2016 with infarct without ischemia 3. History of hypertension 4. History of hyperlipidemia 5. History of hypothyroidism 6. Sinus bradycardia due to metoprolol The patient's chest discomfort was not exertional and grossly unchanged with nitroglycerin. Serial troponins were negative and ECG was without obvious ischemic changes. He has asymptomatic sinus bradycardia due to metoprolol use which should be continued. We discussed further options at length including proceeding directly to cardiac catheterization versus possible repeat outpatient nuclear stress test after discharge. At this time he prefers additional evaluation as an outpatient but will return to the hospital via 911 with any new or recurrent symptoms. He should follow-up in our office within 1 week of discharge. Curtis Valladares MD [facility] Consult Acknowledgment - Thank you for your consult request.
--- NOTE | 2017-08-07 12:41 | Patient Discharge Instructions ---
Discharge Instructions General Discharge Information You were seen/treated for: chest pain Special Instructions: Please follow up with heart doctor within one week. Please call 911 if sever chest pain. Diet Continue normal diet: Yes Recommended Diet: Heart Healthy Activity Full Activity/No Limits: Yes Acute Coronary Syndrome Inclusion Criteria At DC or during hospital stay patient has or had the following: ACS DIAGNOSIS No Discharge Core Measures Meds if any: Prescribed or Continued at Discharge Meds if any: NOT Prescribed or Continued at Discharge Congestive Heart Failure Inclusion Criteria At DC or during hospital stay patient has or had the following: CHF DIAGNOSIS No Discharge Core Measures Meds if any: Prescribed or Continued at Discharge Meds if any: NOT Prescribed or Continued at Discharge Cerebrovascular accident Inclusion Criteria At DC or during hospital stay patient has or had the following: CVA/TIA Diagnosis No Discharge Core Measures Meds if any: Prescribed or Continued at Discharge Meds if any: NOT Prescribed or Continued at Discharge Venous thromboembolism Inclusion Criteria VTE Diagnosis No VTE Type NONE VTE Confirmed by (Test) NONE Discharge Core Measures - Per Current guidelines, there needs to be overlap - treatment for the first 5 days of Warfarin therapy. - If discharged on Warfarin prior to 5 days of - overlap therapy, the patient will need to be - assessed for post discharge needs including - *Post discharge parental anticoagulation - *Warfarin and/or parental anticoagulation education - *Follow up date to check INR post discharge At least 5 days overlap therapy as Inpatient No Meds if any: Prescribed or Continued at Discharge Note: Overlap Therapy is Warfarin and Anticoagulant Meds if any: NOT Prescribed or Continued at Discharge
--- NOTE | 2017-08-07 14:04 | Discharge Summary ---
Visit Information Visit Dates Admission Date: 08/06/17 Discharge Date: 08/07/17 Hospital Course Course Attending Physician: Tommy Noriega MD Primary Care Physician: Macho Brandon DO Hospital Course: 77-year-old male with PMHx of CAD s/p NV, hypothyroidism, BPH, HLD, HTN, bilateral hip replacement, who presented for evaluation of chest pain. The pain started while he was reviewing documents related to his daughter who recently secondary to cancer. ACS was ruled out however given his PMH he will need stress test. The stress test can be done as an outpatient, because he is currently stable and symptom-free and also ACS was ruled out with serial troponin and EKG. #Chest pain * On discharge we continued all home medications includ ASA, BB and statin * He was instructed to follow with the ferris wheel operator with a 1 week * He will be scheduled for stress test to be done as an outpatient * He was instructed to call 911 and come back if any chest pain is to start. Allergies: Coded Allergies: NO KNOWN ALLERGIES (06/22/15) Disposition Summary Disposition Principal Diagnosis: Atypical chest pain possibly stress related, however underlying CAD need to be ruled out with stress test as an outpatient Additional Diagnosis: HTN HDL Discharge Disposition: home or self care Discharge Instructions General Discharge Information Code Status: Full Code Patient's Diet: Heart healthy diet Patient's Activity: As tolerated Follow-Up Instructions/Appts: Please follow up with PCP within 1-2 weeks Please follow up with ferris wheel operator within 1 week Please come back if chest pain to start again Medications at Discharge Discharge Medications: Continue taking these medications: Levothyroxine Sodium (Levothyroxine Sodium) 100 MCG TABLET 1 Tablet ORAL DAILY Qty = 90 Comments: Last Taken: 08/07/17 Time: 633 Simvastatin (Simvastatin*) 20 MG TABLET 1 Tablet ORAL Every night Qty = 90 Comments: LIPITOR GIVEN IN HOSPITAL Last Taken: 08/06/17 Time: 2348 Tamsulosin HCl (Tamsulosin HCl) 0.4 MG CAP.ER.24H 1 Capsule ORAL DAILY Qty = 90 Comments: Last Taken: 08/06/17 Time: 2348 Solifenacin Succinate (Vesicare) 5 MG TABLET 1 Tablet ORAL DAILY Qty = 90 Comments: NOT GIVEN IN HOSPITAL Metoprolol Tartrate (Metoprolol Tartrate) 25 MG TABLET 1 Tablet ORAL TWICE DAILY Qty = 180 Comments: Last Taken: 08/06/17 Time: 2349 Aspirin (Aspirin*) 81 MG TAB.CHEW 1 Tablet ORAL DAILY Comments: Last Taken: 08/07/17 Time: 0840 Calcium Carbonate/Vitamin D3 (Calcium 500 + D Tablet) 500 MG-400 TABLET 1 Tablet ORAL TWICE DAILY Comments: Last Taken: 08/07/17 Time: 0840 Copies To: Blaine CAMPOS,[facility]; Macho Brandon DO Attending MD Review Statement Documenting Attending: Lee CAMPOS,Sue Other Findings: Patient here with atypical chest pain. Histroy of CAD in past. Patient would benefit from further work up of ischemia. He prefers outpatient stress test for now. Cardiology consulted and in agreement. Metoprolol discontinued 2/2 bradycardia. follow up with PCP and cardiology outpatient in 1-2 weeks of discharge.
== END 2017-08-07 12:52 | DRG 313 ==
LOC: ERH 15:15 → 1NO 18:43 → ERHI 18:43 → ENRESERV 20:52 → 1NO 21:15 → ENTRNSPT 21:16 → EDTRNSPT 21:23 → EDTRNSPTSTS 21:23 → 1NO 21:29 → CMPTRNSPT 21:49 → ENPENDDIS 08-07 12:47 → 1NO 08-07 12:52
PROVIDERS: Emergency Medicine; Student in an Organized Health Care Education/Training Program
DX: R07.89 Other chest pain (principal); I25.10 Atherosclerotic heart disease of native coronary artery without angina pectoris; E03.9 Hypothyroidism, unspecified; E66.9 Obesity, unspecified; Z68.34 Body mass index [BMI] 34.0-34.9, adult; I10 Essential (primary) hypertension; I25.2 Old myocardial infarction; Z79.82 Long term (current) use of aspirin; M19.90 Unspecified osteoarthritis, unspecified site; N40.0 Benign prostatic hyperplasia without lower urinary tract symptoms; E78.5 Hyperlipidemia, unspecified
CPT/HCPCS: 1NP; 36592; 71046; 82436; 93005; 93010; J1650; J3490